=== PATIENT | female | born 1965 | race African-American/Black ===

== ENCOUNTER 2018-12-01 01:05 | Emergency (ER) | payer SELFPAY ==
[~2018-12-01] VITALS: Ht 167.6 cm; Wt 107.0 kg
[2018-12-01 01:16] VITALS: BP 110/70
== END 2018-12-01 01:59 | disposition left against medical advice (07) ==
LOC: ER 01:40
DX: Z53.21 Procedure and treatment not carried out due to patient leaving prior to being seen by health care provider (principal)